=== PATIENT | male | born 1980 | race Caucasian/White ===

== ENCOUNTER 2018-11-15 10:49 | Outpatient (REF) | payer OTHER, SELFPAY ==
[2018-11-15 13:24] LABS: ALT 32 U/L (12-78); AST 29 U/L (15-37); Albumin 4.2 g/dL (3.4-5.0); Alkaline Phosphatase 95 U/L (46-116); Anion Gap 9.2 mmol/L (3-11); BUN 12 mg/dL (7-18); Bilirubin, Total 0.7 mg/dL (0.2-1.0); CO2 26.8 mmol/L (21.0-32.0); CREATININE 1.07 mg/dL (0.70-1.30); Calcium 9.9 mg/dL (8.5-10.1); Chloride 101 mmol/L (98-107); Glucose 104 mg/dL (70-100); Potassium 4.5 mmol/L (3.5-5.1); Sodium 137 mmol/L (136-145); Total Protein 7.5 g/dL (6.4-8.2)
== END 2018-11-15 11:09 ==
LOC: NCHCN 10:49
PROVIDERS: PCP Family Medicine; Visit Provider Family Medicine
DX: F64.1 Dual role transvestism (principal); E83.52 Hypercalcemia
CPT/HCPCS: 80053

== ENCOUNTER 2019-02-14 10:45 | Outpatient (REF) | payer OTHER, SELFPAY ==
[2019-02-15 13:21] LABS: Chlamydia Result Negative; GC Result Negative; Specimen Description URINE
[2019-02-16 09:56] LABS: HIV-1/2 Ag & Ab Screen Negative (NEGAT)
[2019-02-16 10:28] LABS: Hepatitis B Surface Ag Negative (NEGAT)
[2019-02-16 11:40] LABS: Syphilis Serology (RPR) Negative (Negative)
== END 2019-02-14 11:05 ==
LOC: NCHCN 10:45
PROVIDERS: PCP Family Medicine; Visit Provider Family Medicine
DX: Z00.00 Encounter for general adult medical examination without abnormal findings (principal); Z11.59 Encounter for screening for other viral diseases; Z11.4 Encounter for screening for human immunodeficiency virus [HIV]; Z11.3 Encounter for screening for infections with a predominantly sexual mode of transmission
CPT/HCPCS: 87340; 87389; 87491; 87591; 86592

== ENCOUNTER 2019-08-01 11:16 | Outpatient (REF) | payer BC, SELFPAY ==
[2019-08-10 17:20] LABS: Methylphenidate 125 ng/mL; Ritalinic Acid 1487 ng/mL
== END 2019-08-01 11:36 ==
LOC: NCHCN 11:16
PROVIDERS: PCP Family Medicine; Visit Provider Family Medicine
DX: F90.0 Attention-deficit hyperactivity disorder, predominantly inattentive type (principal); Z51.81 Encounter for therapeutic drug level monitoring
CPT/HCPCS: 80360

== ENCOUNTER 2019-10-31 13:01 | Outpatient (REF) | payer BC, SELFPAY ==
[2019-10-31 14:17] LABS: ALT 15 U/L (16-63); AST 18 U/L (15-37); Albumin 4.4 g/dL (3.4-5.0); Alkaline Phosphatase 91 U/L (46-116); Anion Gap 11.2 mmol/L (3-11); BUN 13 mg/dL (7-18); Bilirubin, Total 0.4 mg/dL (0.2-1.0); CO2 25.8 mmol/L (21.0-32.0); CREATININE 0.96 mg/dL (0.70-1.30); Chloride 104 mmol/L (98-107); Glucose 102 mg/dL (74-106); Potassium 4.8 mmol/L (3.5-5.1); Sodium 141 mmol/L (136-145); Total Protein 7.7 g/dL (6.4-8.2)
[2019-11-01 15:13] LABS: Hemoglobin A1C 5.6 % (3.8-5.6)
== END 2019-10-31 13:21 ==
LOC: NCHCN 13:01
PROVIDERS: PCP Family Medicine; Visit Provider Family Medicine
DX: R73.09 Other abnormal glucose (principal); F64.1 Dual role transvestism; Z51.81 Encounter for therapeutic drug level monitoring
CPT/HCPCS: 80053; 83036

== ENCOUNTER 2020-10-02 09:37 | Outpatient (REF) | payer OTHER, SELFPAY ==
[2020-10-02 18:32] LABS: Hemoglobin A1C 5.2 % (<5.7)
[2020-10-02 18:41] LABS: Anion Gap 9.8 mmol/L (3-11); BUN 11 mg/dL (7-18); CO2 25.2 mmol/L (21.0-32.0); CREATININE 0.94 mg/dL (0.70-1.30); Calcium 9.5 mg/dL (8.5-10.1); Calculated LDL 70 mg/dL (<100); Chloride 105 mmol/L (98-107); Cholesterol 146 mg/dL (<200); Glucose 102 mg/dL (74-106); HDL Cholesterol 40 mg/dL (40-60); Potassium 4.5 mmol/L (3.5-5.1); Sodium 140 mmol/L (136-145); Triglyceride 181 mg/dL (<150)
== END 2020-10-02 09:57 ==
LOC: NCHCN 09:37
PROVIDERS: PCP Family Medicine; Visit Provider Family Medicine
DX: R73.03 Prediabetes (principal); F64.1 Dual role transvestism; Z00.00 Encounter for general adult medical examination without abnormal findings
CPT/HCPCS: 80048; 80061; 83036

== ENCOUNTER 2021-09-09 13:30 | Outpatient (REF) | payer OTHER, SELFPAY ==
[2021-09-09 19:54] LABS: Anion Gap 10.9 mmol/L (3-11); BUN 12 mg/dL (7-18); CO2 26.1 mmol/L (21.0-32.0); Calcium 9.2 mg/dL (8.5-10.1); Calculated LDL 60 mg/dL (<100); Chloride 105 mmol/L (98-107); Cholesterol 136 mg/dL (<200); Glucose 106 mg/dL (74-106); HDL Cholesterol 38 mg/dL (40-60); Potassium 4.4 mmol/L (3.5-5.1); Sodium 142 mmol/L (136-145); Triglyceride 192 mg/dL (<150)
[2021-09-09 21:10] LABS: Hemoglobin A1C 5.3 % (<5.7)
== END 2021-09-09 13:31 | disposition home or self-care (01) ==
LOC: NCHCN 13:30
PROVIDERS: PCP Family Medicine; Visit Provider Family Medicine
DX: Z00.00 Encounter for general adult medical examination without abnormal findings (principal); R73.03 Prediabetes; Z13.220 Encounter for screening for lipoid disorders
CPT/HCPCS: 80048; 80061; 83036

== ENCOUNTER 2021-12-02 12:17 | Outpatient (REF) | payer OTHER, SELFPAY ==
--- NOTE | 2021-12-02 09:35 | SKI_PTH ---
PATIENT: David Bolden LOC: [facility] U#:[id number] AGE/SX: 41/M ROOM: RE12/02/[address]: Bam Long : 1980 BED: DIS: 12/02/2021 SPEC #: [id number] RECD: 12/02/21 15:45 STATUS: SERA MURILLO #: [id number] DANI: 12/02/21 09:[address]: Bam Long DEPT: Surgical Specimen RECD BY: Essie Babb Tissues: 1 - SKIN BIOPSY(SHAVE/PUNCH) Procedures: SKIN LEVEL 4 Comments: [id number]
== END 2021-12-02 12:18 | disposition home or self-care (01) ==
LOC: NCHCN 12:17
PROVIDERS: PCP Family Medicine; Visit Provider Family Medicine
DX: D22.5 Melanocytic nevi of trunk (principal)
CPT/HCPCS: 88305

== ENCOUNTER 2022-09-01 12:28 | Outpatient (REF) | payer OTHER, SELFPAY ==
[2022-09-01 18:15] LABS: Anion Gap 11.5 mmol/L (3-11); BUN 10 mg/dL (7-18); CO2 23.5 mmol/L (21.0-32.0); Calcium 9.4 mg/dL (8.5-10.1); Chloride 106 mmol/L (98-107); Estimated GFR 97.58 (mL/min/1.73m2); Glucose 105 mg/dL (74-106); Potassium 4.3 mmol/L (3.5-5.1); Sodium 141 mmol/L (136-145)
== END 2022-09-01 12:29 | disposition home or self-care (01) ==
LOC: NCHCN 12:28
PROVIDERS: PCP Family Medicine; Visit Provider Family Medicine
DX: Z00.00 Encounter for general adult medical examination without abnormal findings (principal); R73.03 Prediabetes
CPT/HCPCS: 80048

== ENCOUNTER 2022-12-03 10:57 | Outpatient (REF) | payer OTHER, SELFPAY ==
[2022-12-04 09:24] LABS: Hepatitis B Surface Ag Negative (Negative)
[2022-12-04 10:24] LABS: HIV-1/2 Ag & Ab Screen Negative (Negative)
[2022-12-04 10:33] LABS: Syphilis Serology (RPR) Negative (Negative)
[2022-12-04 13:36] LABS: Chlamydia Result Negative (Negative); GC Result Negative (Negative)
== END 2022-12-03 10:58 | disposition home or self-care (01) ==
LOC: NCHCN 10:57
PROVIDERS: PCP Family Medicine; Visit Provider Family Medicine
DX: Z00.00 Encounter for general adult medical examination without abnormal findings (principal); Z11.4 Encounter for screening for human immunodeficiency virus [HIV]; Z11.3 Encounter for screening for infections with a predominantly sexual mode of transmission
CPT/HCPCS: 87340; 87389; 87491; 87591; 86592

== ENCOUNTER 2023-10-08 12:55 | Outpatient (REF) | payer OTHER, SELFPAY ==
[2023-10-08 17:01] LABS: Anion Gap 10.5 mmol/L (3-11); BUN 11 mg/dL (7-18); CO2 24.5 mmol/L (21.0-32.0); CREATININE 0.9 mg/dL (0.70-1.30); Calcium 9.8 mg/dL (8.5-10.1); Chloride 103 mmol/L (98-107); Estimated GFR 110.04 (mL/min/1.73m2); Glucose 121 mg/dL (74-106); Potassium 4.3 mmol/L (3.5-5.1); Sodium 138 mmol/L (136-145)
[2023-10-08 17:19] LABS: Hemoglobin A1C 5.4 % (<5.7)
== END 2023-10-08 12:56 | disposition home or self-care (01) ==
LOC: NCHCN 12:55
PROVIDERS: PCP Family Medicine; Visit Provider Family Medicine
DX: Z87.890 Personal history of sex reassignment (principal); R73.03 Prediabetes
CPT/HCPCS: 80048; 83036

== ENCOUNTER 2024-05-12 16:32 | Outpatient (REF) | payer OTHER, SELFPAY ==
[2024-05-17 13:20] LABS: Methylphenidate 353 ng/mL (Cutoff: 10); Ritalinic Acid 7276 ng/mL (Cutoff: 50)
== END 2024-05-12 16:33 | disposition home or self-care (01) ==
LOC: NCHCN 16:32
PROVIDERS: PCP Family Medicine; Visit Provider Student in an Organized Health Care Education/Training Program
DX: F90.8 Attention-deficit hyperactivity disorder, other type (principal); Z79.899 Other long term (current) drug therapy; Z51.81 Encounter for therapeutic drug level monitoring
CPT/HCPCS: 80360

== ENCOUNTER 2024-08-04 17:33 | Outpatient (REF) | payer OTHER, SELFPAY ==
[2024-08-04 17:05] LABS: Anion Gap 13.7 mmol/L (3-11); BUN 10 mg/dL (7-18); CO2 25.3 mmol/L (21.0-32.0); CREATININE 1.1 mg/dL (0.70-1.30); Calcium 9.6 mg/dL (8.5-10.1); Chloride 106 mmol/L (98-107); Estimated GFR 85.95 (mL/min/1.73m2); Glucose 103 mg/dL (74-106); Potassium 4.5 mmol/L (3.5-5.1); Sodium 145 mmol/L (136-145)
--- OUTSIDE RECORDS SUMMARY | 2024-08-04 17:53 | XMS_ITS | Encounter Summary ---
Author Organization [facility] Address [address] [place] [address] Care Team Providers Care Concrete Paver Name Role Phone Bam Long MD Primary Care Provider [phone] Reason for Visit * Reason Onset Date Comments Follow-up 09/09/2019 Encounter Details Date Type Department Care Team (Late st Contact Info) Description 09/09/2019 Telephone [facility] Endocrinology - [address] [address] Rohini Nieto MD PhD [address] [facility] [address] [place] [address] Follow-up Social History Tobacco Use Types Packs/Day Years Used Date Smoking Tobacco: Never Smokeless Tobacco: Never Sex and Gender Information Value Date Recorded Sex Assigned at Not on file Gender Identity Not on file Sexual Orientation Not on file documented as of this encounter Functional Status Functional Status Response Date of Assess ment Because of a physical, menta l, or emotional condition, does this person have difficulty doing errands alone such as visiting a doctor's office or shopping? No 08/15/2019 Cognitive Status Response Date of Assessm ent Because of a physical, menta l, or emotional condition, does this person have serious difficulty concentrating, remembering, or making decisions? No 08/15/2019 documented as of this encounter Miscellaneous Notes * Telephone Encounter - Diane Fernandez RN - 09/09/2019 1432 EST Returning patient's call 09/09/19 14:32 This engineering writer relayed the message that was included in Dr. Nieto's 08/22/19 letter. Patient verbalized understanding. No barriers to learning noted. Patient denies having any further questions. DIANE SHERIDAN RN 09/09/2019 14:35 * Telephone Encounter - Kandy Olson - 09/09/2019 1028 EST Patient states he was to have follow up from Provider on alternate dosing treatments on what was discussed during 08/15/19 office visit. No other info given. He also didn't get the letter of the results from hormone levels that was mailed 08/22/19. I have confirmed his mailing address and sent thatinfo again for him. Please call. documented in this encounter Plan of Treatment Not on file documented as of this encounter Visit Diagnoses Not on filedocumented in this encounter Care Teams Concrete Paver Relationship Specialty Start Date End Date Bam Long MD [facility] [place] [address] PCP - General 08/05/19 documented as of this encounter
--- OUTSIDE RECORDS SUMMARY | 2024-08-04 17:53 | XMS_ITS | Encounter Summary ---
Author Organization [facility] Address [address] [place] [address] Care Team Providers Care Form Setter [employer] Forms Name Role Phone Bam Long MD Primary Care Provider [phone] Encounter Details Date Type Department Care Team (Late st Contact Info) Description 12/03/2022 Lab Requisition [facility] Pathology & Laboratory Medicine - [address] [address] Outr Resulting Lab, Provider Social History Tobacco Use Types Packs/Day Years Used Date Smoking Tobacco: Never Smokeless Tobacco: Never Interpersonal Safety Answer Date Record ed Physically Hurt Never 05/27/2020 Verbally Threaten Not on file 05/27/2020 Sex and Gender Information Value Date Recorded [...] No 08/15/2019 documented as of this encounter Plan of Treatment Not on file documented as of this encounter Procedures Procedure Name Priority Date/Time Associated Diagnosis Comments SYPHILIS SEROLOGY Routine 12/03/2022 9:50 EST documented in this encounter Results * SYPHILIS SEROLOGY (12/03/2022 9:50 EST) Syphilis Serology Negative Negative 12/04/2022 10:28 EST [facility] Blood VENOUS BLOOD / Unknown 12/03/2022 9:50 EST 12/03/2022 21:46 EST Provider Outr Resulting Lab IMMUNOLOGY A ND SEROLOGY ORDERABLES Performing Organization Address City/State/[facility] Co de Phone Number [facility] [address] [place] [address] documented in this encounter Visit Diagnoses Not on filedocumented in this encounter Care Teams Form Setter Steel Forms Relationship Specialty Start Date End Date Bam Long MD [facility] [place] [address] [place] [address] PCP - General 08/05/19 documented as of this encounter
--- OUTSIDE RECORDS SUMMARY | 2024-08-04 17:53 | XMS_ITS | Data Portability ---
Author Organization [facility] Address [address] [place] [address] Assessment No assessment recorded. Plan of Treatment Reminders Order Date Submit Date Provider Last Modified By Organization Details Last Modified Time Details Appointments Follow Up 30 2023 09:30A Hitesh Franco Not available Not available Not available Annual Wellness Exam 40 2024 09:30A Hitesh Franco Not available Not available Not available Lab HbA1c (hemoglob in A1c), blood 2022 023 [facility] (Registration ), [address] [place] [address] [place], [address], 10/15/2023 10:23:43 BMP, serum or plasma 2022 023 [facility] (Registration ), [address] [place] [address] [place], [address], 10/15/2023 10:23:43 drug screen, urine 2023 024 [email or web address] [facility], [address], [place], [address], 05/12/2024 17:16:13 methylphe nidate, urine, confirmat ory method - 1 Urine 2023 [email or web address] [facility] (Registration ), [address] [place] [address] [place], [address], 05/19/2024 08:15:42 BMP, serum or plasma 2023 [email or web address] [facility] (Registration ), [address] [place] [address] , [place], [address], 08/04/2024 15:12:15 magnesium , serum or plasma 2023 [email or web address] [facility] (Registration ), [address] [place] [address] , [place], [address], 08/04/2024 15:12:15 drug screen, urine 2023 024 [email or web address] [facility], [address] , [place], [address], 08/04/2024 15:12:15 methylphe nidate, urine, confirmat ory method 2023 [email or web address] [facility] (Registration ), [address] [place] [address] , [place], [address], 08/04/2024 15:12:15 Referral None recorded. Procedures None recorded. Surgeries None recorded. Imaging None recorded. Medication Orders methylphe nidate CD 30 mg biphasic 30-70 capsule,e xtended release 2023 024 [email or web address] [facility], [address] [place], [address], 02/10/2024 10:47:14 methylphe nidate CD 30 mg biphasic 30-70 capsule,e xtended release 2023 024 [email or web address] [facility], [address] [place] [address], [id number], 03/14/2024 07:48:39 methylphe nidate CD 30 mg biphasic 30-70 capsule,e xtended release 2023 024 [email or web address] [facility], [address] [place], [address], 01/14/2024 15:07:19 methylphe nidate CD 30 mg biphasic 30-70 capsule,e xtended release 2023 024 WILIAM [facility], [address] [place] [address], [id number], 05/12/2024 12:45:52 methylphe nidate CD 30 mg biphasic 30-70 capsule,e xtended release 2023 024 WILIAM [facility], [address] [place] [address], [id number], 05/12/2024 12:45:53 methylphe nidate CD 30 mg biphasic 30-70 capsule,e xtended release 2023 024 WILIAM [facility], [address] [place] [address], [address], 05/12/2024 12:45:50 methylphe nidate CD 30 mg biphasic 30-70 capsule,e xtended release 2023 024 WILIAM [facility], [address] [place] [address], [address], 08/04/2024 15:17:48 methylphe nidate CD 30 mg biphasic 30-70 capsule,e xtended release 2023 024 WILIAM [facility], [address] [place] [address], [id number], 08/04/2024 15:17:45 methylphe nidate CD 30 mg biphasic 30-70 capsule,e xtended release 2023 024 [email or web address] [facility], [address] [place] [address], [id number], 08/04/2024 15:17:45 Patient TargetsNo targets recorded. Patient Instructions Encounter Date Encounter Id Patient Instructions Last Modified By Organization Details Last Modified Time 05/12/2024 [id number] I recommend core strenghtening which will help to keep your posture more upright naturally, but also try to vary position. - Add some planks, maybe some crunches/oscillati ng crunch, abduction of leg and adduction of hips. Don't over do it and do reps where you are shaking, keep ROM comfortable, and 2-3 times/week or every 3rd day. [email or web address] Not available 05/12/2024 11:44:56 08/04/2024 [id number] Please give me a call 3-days before you need refill and I will send the next 3-scripts. - Be careful of weekends. Not available 08/04/2024 10:05:31 Reason for Referral None Reported. Results Created Date Observation Date Name Description Value Unit Range Abnormal Flag Note LastModifiedBy Organization Detail LastModifiedTime 10/08/2010/08/2023 BASIC METAB OLIC PANEL calcium 9.8 mg/dL 8.5-10 .1 normal Not Available [address] [place], [address] 10/08/2023 17:37:14 10/08/2010/08/2023 BASIC METAB OLIC PANEL glucose 121 mg/dL 74-106 high Not Available Faye garcia [address] [place], [address] 10/08/2023 17:37:14 10/08/2010/08/2023 BASIC METAB OLIC PANEL BUN 11 mg/dL 7-18 normal Not Available Faye garcia [address] [place], [address] 10/08/2023 17:37:14 10/08/20 23 10/08/2023 BASIC METAB OLIC PANEL creatinine 0.9 mg/dL 0.70-1 .30 normal Not Available [address] [place], [address] 10/08/2023 17:37:14 10/08/2010/08/2023 BASIC METAB OLIC PANEL estimated GFR 110.04 mL/min /1.73m 2 The eGFR is calcu lated from a serum creat inine using the CKD-E PI 2020 equat ion. Other varia bles requi red for the equat ion are gende r and age; this equat ion does not inclu de a race coeff icien t. This equat ion has simil ar overa ll perfo rmanc e to previ ous equat ions excep t value s may diffe r, in parti cular , in patie nts with highe r value s of eGFR and young er-ag ed adult s. Not Available [address] [place], [address] 10/08/2023 17:37:14 10/08/20 23 10/08/2023 BASIC METAB OLIC PANEL sodium 138 mmol/ L 136-14 5 normal Not Available [address] [place], [address] 10/08/2023 17:37:14 10/08/20 23 10/08/2023 BASIC METAB OLIC PANEL potassium 4.3 mmol/ L 3.5-5. 1 normal Not Available [address] [place], [address] 10/08/2023 17:37:14 10/08/20 23 10/08/2023 BASIC METAB OLIC PANEL chloride 103 mmol/ L 98-107 normal Not Available [address] [place], [address] 10/08/2023 17:37:14 10/08/20 23 10/08/2023 BASIC METAB OLIC PANEL CO2 24.5 mmol/ L 21.0-3 2.0 normal Not Available [address] [place], [address] 10/08/2023 17:37:14 10/08/20 23 10/08/2023 BASIC METAB OLIC PANEL anion gap 10.5 mmol/ L 3-11 normal Not Available [address] [place], [address] 10/08/2023 17:37:14 10/08/2010/08/2023 HEMOG LOBIN A1C hemoglobin A1C 5.4 % <5.7 Refer ence Range s <5.7 Jeannie l 5.7-6 .4% Predi abete s 6.5% or great er Diagn ostic for diabe iveth (if confi rmed) Refer ences : 1. Ameri can Diabe iveth Assoc iatio n. Clas sific ation and Diagn osis of Diabe iveth. Diabe iveth Care 2019 Oct;4 2(Sup pleme nt 1):S1 3-s28 . Not Available [address] [place], [address] 10/08/2023 17:38:27 05/12/20 24 05/17/2024 METHY LPHEN IDATE METAB OLITE ,U methylphenid ate 353 NG/mL cutoff : 10 Not Available [address] [place], [address] 05/18/2024 12:56:36 05/12/20 24 05/17/2024 METHY LPHEN IDATE METAB OLITE ,U ritalinic acid 7276 NG/mL cutoff : 50 Not Available [address] [place], [address] 05/18/2024 12:56:36 05/12/20 24 05/12/2024 drug scree n, urine Amphetamines : negati ve Not Available [facility] [address], [place], [address], 05/12/2024 11:39:34 05/12/20 24 05/12/2024 drug scree n, urine Barbiturates : negati ve Not Available [facility] [address], [place], [address], 05/12/2024 11:39:34 05/12/20 24 05/12/2024 drug scree n, urine BUP: negati ve Not Available [facility] [address], [place], [address], 05/12/2024 11:39:34 05/12/20 24 05/12/2024 drug scree n, urine Benzodiazepi javier: negati ve Not Available [facility] [address], [place], [address], 05/12/2024 11:39:34 05/12/20 24 05/12/2024 drug scree n, urine Cocaine: negati ve Not Available [facility] [address], [place], [address], 05/12/2024 11:39:34 05/12/20 24 05/12/2024 drug scree n, urine EDDP (Methadone Metabolite) negati ve Not Available [facility] [address], [place], [address], 05/12/2024 11:39:34 05/12/20 24 05/12/2024 drug scree n, urine (MET) Methamphetam ine: negati ve Not Available [facility] [address], [place], [address], 05/12/2024 11:39:34 05/12/20 24 05/12/2024 drug scree n, urine MDMA: negati ve Not Available [facility] [address], [place], [address], 05/12/2024 11:39:34 05/12/20 24 05/12/2024 drug scree n, urine MTD (Methadone): negati ve Not Available [facility] [address], [place], [address], 05/12/2024 11:39:34 05/12/20 24 05/12/2024 drug scree n, urine [id number] (Opiate): negati ve Not Available [facility] [address], [place], [address], 05/12/2024 11:39:34 05/12/20 24 05/12/2024 drug scree n, urine OXY (Oxycodone): negati ve Not Available [facility] [address], [place], [address], 05/12/2024 11:39:34 05/12/20 24 05/12/2024 drug scree n, urine TCA: negati ve Not Available [facility] [address], [place], [address], 05/12/2024 11:39:34 05/12/20 24 05/12/2024 drug scree n, urine THC: negati ve Not Available [facility] [address], [place], [address], 05/12/2024 11:39:34 05/12/20 24 05/12/2024 drug scree n, urine Temperature: 92 Not Available [facility] [address], [place], [address], 05/12/2024 11:39:34 08/04/20 24 08/04/2024 drug scree n, urine Amphetamines : negati ve Not Available [facility] [address], [place], [address], 08/04/2024 07:13:27 08/04/20 24 08/04/2024 drug scree n, urine Barbiturates : negati ve Not Available [facility] [address], [place], [address], 08/04/2024 07:13:27 08/04/20 24 08/04/2024 drug scree n, urine BUP: negati ve Not Available [facility] [address], [place], [address], 08/04/2024 07:13:27 08/04/20 24 08/04/2024 drug scree n, urine Benzodiazepi javier: negati ve Not Available [facility] [address], [place], [address], 08/04/2024 07:13:27 08/04/2008/04/2024 drug scree n, urine Cocaine: negati ve Not Available [facility] [address], [place], [address], 08/04/2024 07:13:27 08/04/2008/04/2024 drug scree n, urine EDDP (Methadone Metabolite) negati ve Not Available [facility] [address], [place], [address], 08/04/2024 07:13:27 08/04/2008/04/2024 drug scree n, urine (MET) Methamphetam ine: negati ve Not Available [facility] [address], [place], [address], 08/04/2024 07:13:27 08/04/2008/04/2024 drug scree n, urine MDMA: negati ve Not Available [facility] [address], [place], [address], 08/04/2024 07:13:27 08/04/2008/04/2024 drug scree n, urine MTD (Methadone): negati ve Not Available [facility] [address], [place], [address], 08/04/2024 07:13:27 08/04/2008/04/2024 drug scree n, urine [id number] (Opiate): negati ve Not Available [facility] [address], [place], [address], 08/04/2024 07:13:27 08/04/2018 0808/04/2024 drug scree n, urine OXY (Oxycodone): negati ve Not Available [facility] [address], [place], [address], 08/04/2024 07:13:27 08/04/20 24 08/04/2024 drug scree n, urine TCA: negati ve Not Available [facility] [address], [place], [address], 08/04/2024 07:13:27 08/04/2008/04/2024 drug scree n, urine THC: negati ve Not Available [facility] [address], [place], [address], 08/04/2024 07:13:27 Result Notes None recorded. Problems Name Problem SNOMED Code Status Onset Date Resolution Date Notes Provider Name and Address Organization Details Recorded Time Herpesvi tamia infectio n 61479555 Active 2015 Problem Code: A60.00; Problem Code Type: ICD-10; Not Available [facility] 3 04:43:55 Adult health examinat ion Active 201512/02/19 22 - Comments only - Annetta Varela MD - Benign exam overall BMI is trending up, discusse d. Look for exercise opportun ities in winter Reviewed sexual risk, she doesn't think at risk so defers STD screen other labs done 08/2021 Discusse d timing of breast cancer and prostate screens in future. See below Problem Code: Z00.00; Problem Code Type: ICD-10; Not Available [facility] 3 04:43:55 Migraine without aura, not refracto ry 769260185 Active 2015 Problem Code: G43.009; Problem Code Type: ICD-10; Not Available [facility] 3 04:43:55 Attentio n deficit hyperact ivity disorder , predomin antly inattent steven type 13040986 Active 201606/11/20 23 - Comments only - Annetta Varela MD - Stable on methylfe nidate, refill due at the end of the month, continue 3 mo f/u Problem Code: F90.0; Problem Code Type: ICD-10; Not Available [facility] 3 04:43:56 Tinea cruris 421768926 Active 201608/18/20 17 - Comments only - Annetta Varela MD - Most c/w fungal infectio n tinea cruris. try antifung al cream. Discusse d moister, using cotton underwea r might help. Problem Code: B35.6; Problem Code Type: ICD-10; Not Available [facility] 3 04:43:56 Body mass index 25-29 - overweig ht 893041975 Active 2018 Problem Code: Z68.28; Problem Code Type: ICD-10; Not Available [facility] 3 04:43:56 Therapeu tic drug monitori ng assay 28737153 Active 2019 Problem Code: Z51.81; Problem Code Type: ICD-10; Not Available [facility] 3 04:43:56 Prediabe iveth 530384093 Active 201909/01/20 22 - Comments only - Annetta Varela MD - Normaliz ed last year, repeat fasting glucose now as part of BMP Problem Code: R73.03; Problem Code Type: ICD-10; Not Available 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 3 04:43:56 Condylom a acuminat um of the anogenit al region 833709609 Active 202212/03/19 23 - Comments only - Annetta Varela MD - These are c/w genital warts, discusse d options try imiquomo d. Problem Code: A63.0; Problem Code Type: ICD-10; Not Available [facility] 3 04:43:56 Blood glucose outside referenc e range 765206651 Completed 201907/22/2023 Problem Code: R73.09; Problem Code Type: ICD-10; Not Available [facility] 3 04:43:57 History of vasectom y 118587216 Completed 201708/23/2018 Problem Code: Z98.52; Problem Code Type: ICD-10; Not Available [facility] 3 04:43:58 Contrace ption care manageme nt Completed 201705/17/2018 Problem Code: Z30.9; Problem Code Type: ICD-10; Not Available [facility] 3 04:43:58 Hypercal cemia 29574505 Completed 201802/14/2019 Problem Code: E83.52; Problem Code Type: ICD-10; Not Available [facility] 3 04:44:00 Attentio n deficit hyperact ivity disorder 334742553 Active 2023 ZORAIDA MASTERSON [address], [facility] [address] , [facility] 4 11:52:52 Pain of left shoulder region Active [address], [place], [address] , [facility] 4 11:14:28 Problem Notes None recorded. Medical Equipment None Reported. Allergies Allergen ID Allergen Name Allergen Category Reaction Reaction Severity Criticality Documentation Date Start Date Code Code System Note Provider Name and Address Organization Details Recorded Time 21182 house dust allergeni c extract environme nt,medica tion Not available Not available Not available 09/04/20232015 16127 9 RxNorm Not Available [facility] 3 16:22:05 Medications Name Sig Start Date Stop Date Status Note LastModified by Organization Details LastModified Time multivitami n tablet Take 1 tablet by mouth once daily 05/12 completed Not Available Not Available Not Available estradiol 0.05 mg/24 hr weekly transdermal patch Apply 1 patch to skin once a week 03/03 completed Not Available Not Available Not Available spironolact one 100 mg tablet Take 2 tablet by mouth once a day active Not Available Not Available No t Available Excedrin Migraine 250 mg-250 mg-65 mg tablet OTC prn migraine 2015 active Not Available Not Available Not Avai lable estradiol 1 mg tablet TAKE ONE TABLET UNDER THE TONGUE ONCE DAILY active Not Available Not Available No t Available imiquimod 5 % topical cream packet APPLY A SMALL AMOUNT DIRECTED TO AFFECTED AREA(S) THREE TIMES A WEEK 01/13 completed Not Available Not Available Not Available ketoconazol e 2 % topical cream Use to skin twice a day 12/02 completed Not Available Not Available Not Available methylpheni date ER 36 mg tablet,exte nded release 24 hr one po daily (Fill on or after January 17, 2019) 2016 active Not Available Not Available Not Avai lable spironolact one 50 mg tablet Take 1 tab by mouth daily 2016 active Not Available Not Available Not Avai lable methylpheni date CD 20 mg biphasic 30-70 capsule,ext ended release Take 1 tab by mouth daily 2016 active Not Available Not Available Not Avai lable methylpheni date CD 30 mg biphasic 30-70 capsule,ext ended release Take 1 capsule every day by oral route. 2023 active Not Available Not Available Not Avai lable Vitals Date Recorded Body height Body mass index (BMI) Body weight Body temperature Oxygen saturation Oxygen saturation in Arterial blood by Pulse oximetry Respiratory rate Heart rate Systolic blood pressure Diastolic blood pressure Provider Name and Address Organization Details Last Updated DateTime 3 181.61 cm 33.3 kg/m2 908233. 35 g 98.1 [degF] 99 % 99 % 16 /min 72 /min 104 mm[Hg] 70 mm[Hg] ALVIN GONZALEZ RN [facility] 3 10:43:20 Date Recorded Body height Body mass index (BMI) Body weight Body temperature Oxygen saturation Oxygen saturation in Arterial blood by Pulse oximetry Respiratory rate Systolic blood pressure Diastolic blood pressure Provider Name and Address Organization Details Last Updated DateTime 4 181.61 cm 33.4 kg/m2 831014. 95 g 98.2 [degF] 98 % 98 % 15 /min 114 mm[Hg] 78 mm[Hg] ALVIN GONZALEZ RN [facility] 4 14:29:36 Date Recorded Heart rate Provider Name an d Address Organization Details Last Updated DateTime 01/14/2024 102 /min ANNETTA VARELA [facility] 01/14/2024 15:00:22 Date Recorded Body height Body mass index (BMI) Body weight Body temperature Oxygen saturation Oxygen saturation in Arterial blood by Pulse oximetry Heart rate Systolic blood pressure Diastolic blood pressure Provider Name and Address Organization Details Last Updated DateTime 4 181.61 cm 34 kg/m2 059476. 32 g 97.5 [degF] 99 % 99 % 99 /min 112 mm[Hg] 68 mm[Hg] TRACI VALDOVINOS MA [facility] 4 11:09:20 Date Recorded Body height Body mass index (BMI) Body weight Body temperature Oxygen saturation Oxygen saturation in Arterial blood by Pulse oximetry Heart rate Respiratory rate Systolic blood pressure Diastolic blood pressure Provider Name and Address Organization Details Last Updated DateTime 4 181.61 cm 34.1 kg/m2 511295. 91 g 98.1 [degF] 97 % 97 % 91 /min 18 /min 124 mm[Hg] 72 mm[Hg] Miryam Barroso [facility] 4 09:37:41 Social History Question Answer Notes LastModified by Organizat ion Details LastModified Time Tobacco Smoking Status Never Smoker TRACI VALDOVINOS MA null, [facility] 05/12/2024 11:10:44 1) Date Of Last VPMS Check? 08/04/2024 Information not available 08/04/2024 2) VPMS Findings No Concerns VPMS - Filled 06/13/24 Methylphenidate Er 30mg Cap #28 Filled 07/07/24 Methylphenidate Er 30mg Cap #28 Information not available 08/04/2024 What Was The Date Of Your Most Recent Tobacco Screening? 05/12/2024 Information not available 05/12/2024 Do You Or Have You Ever Used Any Other Forms Of Tobacco Or Nicotine? No Information not available 05/12/2024 Sex: Male Functional Status None recorded. Mental Status None recorded. Family History Relationship Description Onset Age of this Age Resolved Age Notes LastModified by Organization Details LastModified Time Mother Family history of Depression Bipola r [email or web address] Not available 09/04/2023 03:58:21 Mother Family history of malignant neoplasm breast [email or web address] Not available 2022 03:58:21 Father Family history of malignant neoplasm prosta te [email or web address] Not available 09/04/2023 03:58:21 Medical History No medical history recorded. Immunizations Vaccine Type Date Status Provider Name and Address Organization Details Recorded Time HPV9 05/12/2024 completed ZORAIDA MASTERSON [address], [place], [address], [facility] 05/12/2024 12:08:55 Hep A-Hep B 12/03/2022 completed Not Available [facility] 09/04/2023 04:09:58 Tdap 07/16/2016 completed Not Available [facility] 04:09:58 Influenza, split virus, quadrivalent, PF 08/01/2019 completed Not Available [facility] 09/04/2023 04:09:59 Influenza, split virus, quadrivalent, PF 09/01/2022 completed Not Available [facility] 09/04/2023 04:09:59 Influenza, split virus, quadrivalent, PF 10/02/2020 completed Not Available [facility] 09/04/2023 04:09:59 Influenza, split virus, quadrivalent, preservative 07/22/2017 completed Not Available [facility] 09/04/2023 04:09:59 HPV9 03/03/2023 completed Not Available [facility] 04:09:59 COVID-19, mRNA, LNP-S, PF, 100 mcg/0.5mL dose or 50 mcg/0.25mL dose 02/23/2021 completed Not Available [facility] 09/04/20 04:10:00 COVID-19, mRNA, LNP-S, PF, 100 mcg/0.5mL dose or 50 mcg/0.25mL dose 03/23/2021 completed Not Available [facility] 09/04/20 04:10:00 SARS-COV-2 (COVID-19) vaccine, UNSPECIFIED 04/10/2022 completed Not Available [facility] 09/04/2023 04:10:01 SARS-COV-2 (COVID-19) vaccine, UNSPECIFIED 09/30/2021 completed Not Available [facility] 09/04/2023 04:10:01 COVID-19, mRNA, LNP-S, bivalent, PF, 30 mcg/0.3 mL dose 01/27/2023 completed Not Available [facility] 09/04/2023 04:10:01 influenza, unspecified formulation 08/09/2018 completed Not Available [facility] 09/04/2023 04:10:02 Influenza, split virus, trivalent, PF 08/04/2024 completed ALVIN GONZALEZ RN [facility], [facility] 08/04/2024 16:44:10 COVID-19, mRNA, LNP-S, PF, deborah-sucrose, 30 mcg/0.3 mL 08/04/[address], [place], [address], [facility] 08/04/2024 10:23:33 COVID-19, mRNA, LNP-S, PF, deborah-sucrose, 30 mcg/0.3 mL 10/08/2023 completed ANNETTA coughlin [facility] 10/08/2023 12:03:01 HPV9 10/08/2023 completed ANNETTA coughlin [facility] 10/08/2023 12:03:01 Influenza, split virus, quadrivalent, PF 10/08/2023 completed ANNETTA coughlin, [facility] 10/08/2023 12:03:01 Past Encounters Encounter ID Performer Location Encounter Start Date Encounter Closed Date Diagnosis/Indication Diagnosis SNOMED-CT Code Diagnosis ICD10 Code [id number] ANNETTA VARELA [facility] [address] [place] [address] 10/08/2023 10:27:50 10/08/2023 11:12:17 Attention deficit hyperactivity disorder, predominantly inattentive type [id number] F90.0 Gender carter ssignment patient [id number] Z87.890 Prediabetes [id number] R7 3.03 [id number] ANNETTA VARELA [facility] [address] [place] [address] 01/14/2024 14:14:09 01/14/2024 15:02:22 Attention deficit hyperactivity disorder, predominantly inattentive type [id number] F90.0 Gender carter ssignment patient [id number] Z87.890 Prediabetes 435019856 R7 3.03 [id number] ZORAIDA MASTERSON [facility] [address] [place] [address] 05/12/2024 10:57:02 05/12/2024 11:55:18 Active or passive immunization 598294247 Z23 Attention deficit hyperactivity disorder 387590522 F90.9 Pain of le ft shoulder region [id number] M25.482 [id number] ZORAIDA MASTERSON [facility] [address] [place] [address] 08/04/2024 09:26:56 08/04/2024 10:21:48 Attention deficit hyperactivity disorder [id number] F90.9 Active or passive immunization 347689861 Z23 Therapeuti c drug monitoring assay 83412278 Z51.81 Health Concerns Section Related Observation LastModified by Organization Detai ls LastModified Time None Recorded Concern Status LastModified by Organization Details LastModified Time None Recorded Advance Directives Directive None Recorded Payers Encounter Date Sequence Insurance Name Policy Number Policy [place] Covered Member ID [place] Member ID Guarantor Name 10/08/2023 1 [facility] [place] [facility] (PPO) [id number] David Bolden [id number] David Bolden 01/14/2024 1 [facility] [place] [facility] [facility] ([place] [id number] Davidhola Bolden [id number] David Bolden 05/12/2024 1 [facility] [place] [facility] [place] [facility] ([place] [id number] Davidhola Bolden [id number] David Bolden 08/04/2024 1 [facility] [place] [facility] (PP[place] [id number] David Bolden [id number] David Bolden Notes Date Note Type Note Provider Name and Address Organization Details Recorded Time 01/14/2024 text/html HPI Notes: Here for follow up They are feeling fine meds doing what it should do - 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 ADHD meds gets them through the typical work day Here for follow up They are feeling fine, happy with methylfenidate, helping with focus and staying on task during work day. ANNETTA coughlin, [facility] 01/14/2024 15:09:08 05/12/2024 text/html HPI Notes: Pt, 6 2- AMAB, gender fluid is how Rolando is identifying is here for f/u for ADHD and also has a left shoulder ache. Rolando is using the name Keara. Left Shoulder: Keara describes a feeling of achiness over medial shoulderblade towards spine with some tightness felt when rotating head to the right at limits of rotation. No acute incident known to be the cause. Has not trialed any pain medication. Denies any tics, inappropriate diaphoresis, or palpitations. ADHD: Pt. reports medication is helpful. 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 Social: Pt. reports she lives with her mother. She has her 12-year-old child (they/them) 1/2 the time and the other 1/2 the time with their mother. ZORAIDA MA[address], [place], [address], [facility]. 05/12/2024 12:48:36 08/04/2024 text/html HPI Notes: Pt 44-here for ADHD follow up. Reports meds working as long and as well as they should. No palpitations, diaphoresis, raynaud's, no new tics. Pt. w/out concerns. VPMS checked today. ZORAIDA MA[address], [place], [address], [facility]. 08/04/2024 15:18:46
--- OUTSIDE RECORDS SUMMARY | 2024-08-04 17:53 | XMS_ITS | Encounter Summary ---
Author Organization [facility] Address [address] [place] [address] Care Team Providers Care Staff Home Therapy Rn Name Role Phone Bam Long MD Primary Care Provider [phone] Encounter Details Date Type Department Care Team (Late st Contact Info) Description 12/03/2022 Lab Requisition [facility] Pathology & Laboratory Medicine - [address] [address] Outr Resulting Lab, Provider Social History Tobacco [...] Procedure Name Priority Date/Time Associated Diagnosis Comments CHLAMYDIA/N. GONORRHOEAE AMPLIFIED NUCLEIC ACID Routine 12/03/2022 9:50 EST documented in this encounter Results * CHLAMYDIA/N. GONORRHOEAE AMPLIFIED RNA (12/03/2022 9:50 EST) Neisseria gonorrhoeae Result Negative Negative 12/04/2022 13:[address] [facility] Chlamydia trachomatis Result Negative Negative 12/04/2022 13:[address] [facility] Urine URINE / Unknown 12/03/2022 9 :50 EST 12/03/2022 22:19 EST Provider Outr Resulting Lab MICROBIOLOGY - GENERAL ORDERABLES [facility] [address] [place] [address] documented in this encounter Visit Diagnoses Not on filedocumented in this encounter Care Teams Staff Home Therapy Rn Relationship Specialty Start Date End Date Bam Long MD [address] [place] [address] PCP - General 08/05/19 documented as of this encounter
--- OUTSIDE RECORDS SUMMARY | 2024-08-04 17:53 | XMS_ITS | Encounter Summary ---
Author Organization [facility] Address [address] [place] [address] Care Team Providers Care Grain Elevator Operator Name Role Phone Bam Long MD Primary Care Provider [phone] Encounter Details Date Type Department Care Team (Late st Contact Info) Description 12/03/2022 Lab Requisition [facility] Pathology & Laboratory Medicine - [address] [address] Outr Resulting Lab, Provider Social History Tobacco [...] Procedure Name Priority Date/Time Associated Diagnosis Comments HEPATITIS B SURFACE ANTIGEN Routine 12/03/2022 9:50 EST documented in this encounter Results * HEPATITIS B SURFACE ANTIGEN (12/03/2022 9:50 EST) Hep B Surface Ag Negative Negative 12/04/2022 9:20 EST [facility] Blood VENOUS BLOOD / Unknown 12/03/2022 9:50 EST 12/03/2022 21:45 EST Provider Outr Resulting Lab CHEMISTRY & BLOOD GAS ORDERABLES [facility] [address] [place] [address] documented in this encounter Visit Diagnoses Not on filedocumented in this encounter Care Teams Grain Elevator Operator Relationship Specialty Start Date End Date Bam Long MD [address] [place] [address] PCP - General 08/05/19 documented as of this encounter
--- OUTSIDE RECORDS SUMMARY | 2024-08-04 17:53 | XMS_ITS | Encounter Summary ---
Author Organization [facility] Address [address] [place] [address] Care Team Providers Care Flooring Installer Name Role Phone Bam Long MD Primary Care Provider Encounter Details Date Type Department Care Team (Late st Contact Info) Description 12/03/2021 Lab Requisition [facility] Pathology & Laboratory Medicine - [address] [address] Bam Long MD [address] [place] [address] [place], [place] [id number] Encounter for other general examination Social History Tobacco Use Types Packs/Day Years [...] Procedure Name Priority Date/Time Associated Diagnosis Comments SURGICAL PATHOLOGY Today 12/02/2021 9: 35 EST Encounter for other general examination documented in this encounter Results * SURGICAL PATHOLOGY (12/02/2021 9:35 EST) Note to Patient The following pathology results have been interpreted by your pathologist and may be available to you before your health provider has had the opportunity to review them. Please allow time for your provider to receive these results and explore management options, if applicable. 12/04/2021 10:47 [facility] Final Diagnosis A. 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 12/04/2021 10:47 [facility] Attestation By the signature below, the attending physician certifies that they have 1) personally conducted a gross and/or microscopic examination of the described specimen(s), and/or personally interpreted the results of laboratory testing of the described specimen(s), and 2) personally rendered or confirmed the above diagnosis. 12/04/2021 10:47 [facility] at 1047 Clinical History Mole, irregular edges, bigger than others 12/04/2021 10:47 [facility] Gross Description A. Received in formalin labelled with proper patient identification (initials W, N) and shave biopsy left back is a shave biopsy of pale ledesma-white wrinkled skin (1.0 x 0.8 x 0.1 cm). There is a central ledesma to brown mottled macule with irregular borders (0.8 x 0.5 cm). Received in the same container is a possibly dislodged portion of white wrinkled skin (0.5 x 0.4 x 0.2 cm). There is a ledesma to brown mottled focus on one edge of the cutaneous surface of the separately received portion of skin (0.3 x 0.3 cm). The margins are inked blue. The shave biopsy is trisected and submitted in A1, and the separately received portion of skin is bisected and submitted in A2. Nazario Pham 12/03/2021 9:33 12/04/2021 10:47 [facility] Performing Lab [facility] 10:47 EST [facility] Scanned Images 12/04/2021 10:47 EST [facility] Tissue TISSUE SPECIMEN FROM SKIN / Unknown 12/02/2021 9:35 EST 12/03/2021 8:21 EST Bam Long MD PATHOLOGY ORDERABLES Performing Organization Address City/State/[facility] Co de Phone Number [facility] [address] [place] [address] documented in this encounter Visit Diagnoses Diagnosis Encounter for other general examination documented in this encounter Care Teams Flooring Installer Relationship Specialty Start Date End Date Bam Long MD [facility] [place] [address] [place] [address] PCP - General 08/05/19 documented as of this encounter
--- OUTSIDE RECORDS SUMMARY | 2024-08-04 17:53 | XMS_ITS | Encounter Summary ---
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 Bam Long MD [address] [place] [address] [place] [address] [facility] Endocrinology [address] [place] [address] Referral ID Status Reason Start Date Expiration Date Visits Re quested Visits Authorized [id number] Closed 1 1 Encounter Details Date Type Department Care Team (Latest Contact Info) Description 08/15/2019 9:00 EDT Office Visit [facility] Endocrinology - [facility] [address] [place] [address] Rohini Nieto MD PhD [address] [place] [address] [address] [place] [id number] Hormone disorder (Primary Dx) Discharge Disposition: Auto Discharge Social History Tobacco Use Types Packs/Day Years Used Date Smoking Tobacco: Never Smokeless Tobacco: Never Sex and Gender Information Value Date Recorded Sex Assigned at Not on file Gender Identity Not on file Sexual Orientation Not on file documented as of this encounter Last Filed Vital Signs Vital Sign Reading Time Taken Comments Blood Pressure 117/75 08/15/2019 0909 EDT Pulse 98 08/15/2019 0909 EDT Temperature - - Respiratory Rate - - Oxygen Saturation - - Inhaled Oxygen Concentration - - Weight 96.6 kg (213 lb) 08/15/2019908 EDT Height 182.9 cm (6') 08/15/2019 09 EDT Body Mass Index 28.89 08/15/2019 09 EDT documented in this encounter Functional Status Functional Status Response [...] No 08/15/2019 documented as of this encounter Discharge Diagnoses Diagnosis E34.9 Endocrine disorder, unspecified-E34.9[ICD-10-CM] documented in this encounter Patient Instructions * Patient Instructions* Rohini Nieto MD - 08/15/2019 9:00 EDT Will check the testosterone, estradiol The spironolactone will interfere with the testosterone effect on tissues, it does not lower the level in the blood. Estrogen will lower the level in the blood, increased risk for blood clots, which can be minimized by either taking oral medication under the tongue or using a patch. I will look into micro-dosing of estrogen and see if that would satisfy your goal of gender identification. 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 Patient states that he is fine with any pronoun at this time. He started using Spironolactone about 2 years ago and is verysatisified with his breast development, and he is wondering about the addition of estrogen. While he would like to look more feminine, he is not ready to transition, and also prefers to have the ability to have erections. He is pretty certain that he would not have any type of surgery to transition, and is not concerned about banking of sperm, as he has had a vasectomy in the past. He is on Spironolactone 50 mg 2/d. He is otherwise healthy without diabetes, heart or lung disease, no liver disease. Never smoker. Never diagnosed with depression, but has ADD on Methylphenidate. HPI PAST HISTORY Past Medical History: Diagnosis Date ??? ADHD ??? Asthma Past Surgical History: Procedure Laterality Date ??? VASECTOMY 2018 No family history on file. Social History Tobacco Use ??? Smoking status: Never Smoker ??? Smokeless tobacco: Never Used Substance Use Topics ??? Alcohol use: Not on file ??? Drug use: Not on file MEDICATIONS Current Outpatient Medications Medication Sig Dispense Refill ??? methylphenidate HCl (METADATE CD) 30 mg ER capsule Take 30 mg by mouth daily. 0 ??? Multivitamins with Minerals tablet tablet Take 1 Tab by mouth daily. ??? spironolactone (ALDACTONE) 50 mg tablet Take 50 mg by mouth 2 times daily. No current facility-administered medications for this visit. ALLERGIES No Known Allergies REVIEW OF SYSTEMS ROS Denies blurred vision, no chest pain or SOB, no diarrhea or constip, no polyuria or nocturia, no paraesthesias. VITALS Vitals: 08/15/19 0909 BP: 117/75 Pulse: 98 Weight: 96.6 kg (213 lb) Height: 182.9 cm (72) PHYSICAL EXAM Constitutional: He is oriented to person, place, and time. He appears well- developed and well-nourished. HENT: Head: Normocephalic. Mouth/Throat: No oropharyngeal exudate. Eyes: Pupils are equal, round, and reactive to light. EOM are normal. Neck: Normal range of motion. Neck supple. No thyromegaly present. Cardiovascular: Normal rate, regular rhythm and normal heart sounds. Pulmonary/Chest: Effort normal and breath sounds normal. Breasts enlarged without lesions, Zaheer stage 3 Abdominal: Soft. Bowel sounds are normal. Musculoskeletal: Normal range of motion. He exhibits no edema. Neurological: He is alert and oriented to person, place, and time. Skin: Skin is warm and dry. Has hirsutism lower abd, mustache area Psychiatric: He has a normal mood and affect. His behavior is normal. Judgment and thought content normal. ASSESSMENT 1. Hormone disorder TESTOSTERONE ESTRADIOL, ADULTS This young adult has a gender identity that is fluid. He has been thinking about possible estrogen use, but is not ready to transition, nor is he interested in any gender-related surgery. We discussed that the Spironolactone would lead to some interference of the effect of testosterone on tissues, but would not lower the testosterone level in the blood. His dose of Spironolactone is not high at 100 mg/d. Use of estrogen would lower testosterone and raise estradiol, leading to more feminization. It would likely affect the libido and ability to get erections. PLAN 1. Given handout on risks and benefits of estrogen replacement. 2. Given handout on Expectations on taking Estrogen. 3. Will get level of Testosterone and estradiol today. 4. Will see if there is any literature on micro-dosing that could lead to more feminization withoutlosing erections. Rohini Nieto MD 08/15/2019 10:05 documented in this encounter Plan of Treatment Not on file documented as of this encounter Results * ESTRADIOL, ADULTS (08/15/2019 10:03 EDT) Estradiol 23 0 - 40 pg/ml 08/15/2019 17:20 EDT [facility] Blood specimen (specimen) BLOOD SPECIMEN / Unknown 08/15/2019 10:03 EDT 08/15/2019 16:19 EDT Rohini Nieto MD PhD CHEMISTRY & BLOOD GAS ORDERABLES [facility] [address] [place] [address] * TESTOSTERONE (08/15/2019 10:03 EDT) Testosterone 356 229 - 902 ng/dl 08/16/2019 11:54 EDT [facility] Comment: The results of this assay can be falsely elevated due to the consumption of Biotin. Blood specimen (specimen) BLOOD SPECIMEN / Unknown 08/15/2019 10:03 EDT 08/15/2019 16:19 EDT Rohini Nieto MD PhD CHEMISTRY & BLOOD GAS ORDERABLES [facility] [address] [place] [address] documented in this encounter Visit Diagnoses Diagnosis Hormone disorder- Primary Unspecified endocrine disorder documented in this encounter Discontinued Medications Medication Sig Discontinue Reason Start Date End Da te spironolactone (ALDACTONE) 100 mg tablet Take 200 mg by mouth daily. Error 07/19/2019 08/15/2019 documented as of this encounter Historical Medications * This list may reflect changes made after this encounter. Medication Sig Dispensed Refills Start Date End Date spironolactone (ALDACTONE) 50 mg tablet Take 50 mg by mouth 2 times daily. Multivitamins with Minerals tablet tablet Take 1 Tab by mouth daily. methylphenidate HCl (METADATE CD) 30 mg ER capsule Take 30 mg by mouth daily. 0 07/21/2019 spironolactone (ALDACTONE) 100 mg tablet Take 200 mg by mouth daily. 1 07/19/2019 08/15/2019 added in this encounter Care Teams Soil Technician Relationship Specialty Start Date End Date Bam Long MD [address] [facility] [address] PCP - General 08/05/19 documented as of this encounter
--- OUTSIDE RECORDS SUMMARY | 2024-08-04 17:53 | XMS_ITS | Continuity of Care Document ---
Author Organization [facility] Address [address] [place] [address] Assessment No assessment recorded. Plan of Treatment Reminders Order Date Submit Date Provider Last Modified By Organization Details Last Modified Time Details Appointments Follow Up 30 2023 09:30A M Adal Franco Not available Not available Not available Annual Wellness Exam 40 2024 09:30A M Adal Franco Not available Not available Not available Lab drug screen, urine 2023 024 [facility], [address], [place], [address], 05/12/2024 17:16:13 methylphe nidate, urine, confirmat ory method - 1 Urine 2023 024 [email or web address] [facility] (Registration ), [address] [place] [address] [place], [address], 05/19/2024 08:15:42 Referral None recorded. Procedures None recorded. Surgeries None recorded. Imaging None recorded. Medication Orders methylphe nidate CD 30 mg biphasic 30-70 capsule,e xtended release 2023 024 [facility], [address] [facility], [place], [address], 05/12/2024 12:45:52 methylphe nidate CD 30 mg biphasic 30-70 capsule,e xtended release 2023 024 [facility], [address] [place], [address], 05/12/2024 12:45:53 methylphe nidate CD 30 mg biphasic 30-70 capsule,e xtended release 2023 024 [facility], [address] [place], [address], 05/12/2024 12:45:50 Patient TargetsNo targets recorded. Patient Instructions Encounter Date Encounter Id Patient Instructions Last Modified By Organization Details Last Modified Time 05/12/2024 [id number] I recommend core strenghtening which will help to keep your posture more upright naturally, but also try to vary position. - Add some planks, maybe some crunches/oscillati ng crunch, abduction of leg and adduction of hips. Don't over do it and do reps where you are shaking, keep ROM comfortable, and 2-3 times/week or every 3rd day. [email or web address] Not available 05/12/2024 11:44:56 Reason for Referral None Reported. Results Created Date Observation Date Name Description Value Unit Range Abnormal Flag Note LastModifiedBy Organization Detail LastModifiedTime 05/12/2005/12/2024 drug scree n, urine Amphetamines : negati ve Not Available [facility] [address], [place], [address], 05/12/2024 11:39:34 05/12/20 24 05/12/2024 drug scree n, urine Barbiturates : negati ve Not Available [facility] [address], [place], [address], 05/12/2024 11:39:34 05/12/20 24 05/12/2024 drug scree n, urine BUP: negati ve Not Available [facility] [address], [place], [address], 05/12/2024 11:39:34 05/12/20 24 05/12/2024 drug scree n, urine Benzodiazepi javier: negati ve Not Available [facility] [address], [place], [address], 05/12/2024 11:39:34 05/12/20 24 05/12/2024 drug scree n, urine Cocaine: negati ve Not Available [facility] [address], [place], [address], 05/12/2024 11:39:34 05/12/20 24 05/12/2024 drug scree n, urine EDDP (Methadone Metabolite) negati ve Not Available [facility] [address], [place], [address], 05/12/2024 11:39:34 05/12/20 24 05/12/2024 drug scree n, urine (MET) Methamphetam ine: negati ve Not Available [facility] [address], [place], [address], 05/12/2024 11:39:34 05/12/20 24 05/12/2024 drug scree n, urine MDMA: negati ve Not Available [facility] [address], [place], [address], 05/12/2024 11:39:34 05/12/20 24 05/12/2024 drug scree n, urine MTD (Methadone): negati ve Not Available [facility] [address], [place], [address], 05/12/2024 11:39:34 05/12/20 24 05/12/2024 drug scree n, urine [id number] (Opiate): negati ve Not Available [facility] [address], [place], [address], 05/12/2024 11:39:34 05/12/20 24 05/12/2024 drug scree n, urine OXY (Oxycodone): negati ve Not Available [facility] [address], [place], [address], 05/12/2024 11:39:34 05/12/20 24 05/12/2024 drug scree n, urine TCA: negati ve Not Available [facility] [address], [place], [address], 05/12/2024 11:39:34 05/12/20 24 05/12/2024 drug scree n, urine THC: negati ve Not Available [facility] [address], [place], [address], 05/12/2024 11:39:34 05/12/20 24 05/12/2024 drug scree n, urine Temperature: 92 Not Available [facility] [address], [place], [address], 05/12/2024 11:39:34 Result Notes None recorded. Problems Name Problem SNOMED Code Status Onset Date Resolution Date Notes Provider Name and Address Organization Details Recorded Time Herpesvi tamia infectio n 72827036 Active 2015 Problem Code: A60.00; Problem Code Type: ICD-10; Not Available [facility] 3 04:43:55 Adult health examinat ion Active 201512/02/19 22 - Comments only - Annetta Long MD - Benign exam overall BMI is trending up, discusse d. Look for exercise opportun ities in winter Reviewed sexual risk, she doesn't think at risk so defers STD screen other labs done 08/2021 Discusse d timing of breast cancer and prostate screens in future. See below Problem Code: Z00.00; Problem Code Type: ICD-10; Not Available [facility] 04:[facility]:55 Migraine without aura, not refracto ry 639231723 Active 2015 Problem Code: G43.009; Problem Code Type: ICD-10; Not Available [facility] 3 04:43:55 Attentio n deficit hyperact ivity disorder , predomin antly inattent steven type 18028264 Active 201606/11/20 23 - Comments only - Annetta Long MD - Stable on methylfe nidate, refill due at the end of the month, continue 3 mo f/u Problem Code: F90.0; Problem Code Type: ICD-10; Not Available [facility] 04:43:56 Tinea cruris 566503649 Active 201608/18/20 17 - Comments only - Annetta Long MD - Most c/w fungal infectio n tinea cruris. try antifung al cream. Discusse d moister, using cotton underwea r might help. Problem Code: B35.6; Problem Code Type: ICD-10; Not Available [facility] 3 04:43:56 Body mass index 25-29 - overweig ht 908781862 Active 2018 Problem Code: Z68.28; Problem Code Type: ICD-10; Not Available [facility] 3 04:43:56 Therapeu tic drug monitori ng assay 92377563 Active 2019 Problem Code: Z51.81; Problem Code Type: ICD-10; Not Available [facility] 3 04:43:56 Prediabe iveth 019306527 Active 201909/01/20 22 - Comments only - Annetta Long MD - Normaliz ed last year, repeat fasting glucose now as part of BMP Problem Code: R73.03; Problem Code Type: ICD-10; Not Available [facility] 3 04:43:56 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 Problem Code: A63.0; Problem Code Type: ICD-10; Not Available [facility] 3 04:43:56 Blood glucose outside referenc e range 337297331 Completed 201907/22/2023 Problem Code: R73.09; Problem Code Type: ICD-10; Not Available [facility] 3 04:43:57 History of vasectom y 383932777 Completed 201708/23/2018 Problem Code: Z98.52; Problem Code Type: ICD-10; Not Available [facility] 3 04:43:58 Contrace ption care manageme nt Completed 201705/17/2018 Problem Code: Z30.9; Problem Code Type: ICD-10; Not Available [facility] 3 04:43:58 Hypercal cemia 59473932 Completed 201802/14/2019 Problem Code: E83.52; Problem Code Type: ICD-10; Not Available [facility] 3 04:44:00 Attentio n deficit hyperact ivity disorder 441082164 Active [address], [facility] [address] , [facility] 4 11:52:52 Pain of left shoulder region Active [address], [facility] [address] , [facility] 4 11:14:28 Problem Notes None recorded. Medical Equipment None Reported. Allergies Allergen ID Allergen Name Allergen Category Reaction Reaction Severity Criticality Documentation Date Start Date Code Code System Note Provider Name and Address Organization Details Recorded Time 95558 house dust allergeni c extract environme nt,medica tion Not available Not available Not available 09/04/20232015 50033 9 RxNorm Not Available [facility] 3 16:22:05 Medications Name Sig Start Date [...] Updated DateTime 4 181.61 cm 34 kg/m2 525450. 32 g 97.5 [degF] 99 % 99 % 99 /min 112 mm[Hg] 68 mm[Hg] TRACI VALDOVINOS MA [place] [facility]. 4 11:09:20 Social History Question Answer Notes LastModified by Organizat ion Details LastModified Time Tobacco Smoking Status Never Smoker TRACI VALDOVINOS MA null, [facility] 05/12/2024 11:10:44 1) Date Of Last VPMS [...] Mother Family history of Depression Bipola r Not available 09/04/2023 03:58:21 Mother Family history of malignant neoplasm breast [email or web address] Not available 2022 03:58:21 Father Family history of malignant neoplasm prosta te Not available 09/04/2023 03:58:21 Medical History No medical history recorded. Immunizations Vaccine Type Date Status Provider Name and Address Organization Details Recorded Time HPV9 05/12/[address], [place], [address], [facility] 05/12/2024 12:08:55 Hep A-Hep B 12/03/2022 completed Not Available [facility] 09/04/2023 04:09:58 Tdap 07/16/2016 completed Not Available [facility] 04:09:58 Influenza, split virus, quadrivalent, PF 08/01/2019 completed Not Available [facility] 09/04/2023 04:09:59 Influenza, split virus, quadrivalent, PF 09/01/2022 completed Not Available [facility] 09/04/2023 04:09:59 Influenza, split virus, quadrivalent, PF 10/02/2020 completed Not Available [facility] 09/04/2023 04:09:59 Influenza, split virus, quadrivalent, preservative 07/22/2017 completed Not Available [facility] 09/04/2023 04:09:59 HPV9 03/03/2023 completed Not Available [facility] 04:09:59 COVID-19, mRNA, LNP-S, PF, 100 mcg/0.5mL dose or 50 mcg/0.25mL dose 02/23/2021 completed Not Available [facility] 09/04/20 04:10:00 COVID-19, mRNA, LNP-S, PF, 100 mcg/0.5mL dose or 50 mcg/0.25mL dose 03/23/2021 completed Not Available [facility] 09/04/20 04:10:00 SARS-COV-2 (COVID-19) vaccine, UNSPECIFIED 04/10/2022 completed Not Available [facility] 09/04/2023 04:10:01 SARS-COV-2 (COVID-19) vaccine, UNSPECIFIED 09/30/2021 completed Not Available [facility] 09/04/2023 04:10:01 COVID-19, mRNA, LNP-S, bivalent, PF, 30 mcg/0.3 mL dose 01/27/2023 completed Not Available [facility] 09/04/2023 04:10:01 influenza, unspecified formulation 08/09/2018 completed Not Available [facility] 09/04/2023 04:10:02 Influenza, split virus, trivalent, PF 08/04/2024 completed ALVIN GONZALEZ RN null, [facility]. 08/04/2024 16:44:10 COVID-19, mRNA, LNP-S, PF, deborah-sucrose, 30 mcg/0.3 mL 08/04/[address], [place], [address], [facility]. 08/04/2024 10:23:33 COVID-19, mRNA, LNP-S, PF, deborah-sucrose, 30 mcg/0.3 mL 10/08/2023 completed ANNETTA LONG null, [facility] 10/08/2023 12:03:01 HPV9 10/08/2023 completed ANNETTA NICHOLE coughlin, [facility] 10/08/2023 12:03:01 Influenza, split virus, quadrivalent, PF 10/08/2023 completed ANNETTA NICHOLE coughlin, [facility] 10/08/2023 12:03:01 Past Encounters Encounter ID Performer Location Encounter Start Date Encounter Closed Date Diagnosis/Indication Diagnosis SNOMED-CT Code Diagnosis ICD10 Code [id number] ZORAIDA MASTERSON [facility] [address] [place] [address] 05/12/2024 10:57:02 05/12/2024 11:55:18 Active or passive immunization 322399492 Z23 Attention deficit hyperactivity disorder 028887116 F90.9 Pain of le ft shoulder region 2165326283 M25.512 Health Concerns Section Related Observation LastModified by Organization Detai ls LastModified Time None Recorded Concern Status LastModified by Organization Details LastModified Time None Recorded Payers Encounter Date Sequence Insurance Name Policy Number Policy [place] Covered Member ID [place] Member ID Guarantor Name 05/12/2024 1 [facility] [id number] David Bolden [id number] David Bolden Notes Date Note Type Note Provider Name and Address Organization Details Recorded Time 05/12/2024 text/html HPI Notes: Pt, 4 2- [...] employed for 4-years now. 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 Social: Pt. reports she lives with her mother. She has her 12-year-old child (they/them) 1/2 the time and the other 1/2 the time with their mother. ZORAIDA MASTERSON [address], [place], [address], [facility]. 05/12/2024 12:48:36
--- OUTSIDE RECORDS SUMMARY | 2024-08-04 17:53 | XMS_ITS | Encounter Summary ---
Author Organization [facility] Address [address] [place] [address] Care Team Providers Care Marine Scientist Name Role Phone Unavailable Primary Care Provider Unavailabl e Encounter Details Date Type Department Care Team (Latest Contact Info) Description 02/22/2003 8:11 EDT - 02/22/2003 11:59 EDT Hospital Encounter [facility] Emergency Department - [facility] [address] [place] [address] Emergency, Default, MD Discharge Disposition: Home or Self Care Social History Tobacco Use Types Packs/Day Years Used Date Smoking Tobacco: Never Assessed Sex and Gender Information Value Date Recorded Sex Assigned at Not on file Gender Identity Not on file Sexual Orientation Not on file documented as of this encounter Discharge Disposition Disposition Code Departure Means Destination Home or Self Care documented in this encounter Plan of Treatment Not on file documented as of this encounter Procedures Procedure Name Priority Date/Time Associated Diagnosis Comments GROUP A STREP CULTURE Routine 02/22/2003 9:00 EDT documented in this encounter Results * PHARYNGITIS CULTURE (02/22/2003 9:00 EDT) Specimen Description Throat [facility] Result NO GROUP A BETA STREPTOCOCCI ISOLATED [facility] Report Status Final [id number] [facility] 02/22/2003 9:00 EDT 02/22/2003 9:31 EDT Default Emergency MD MICROBIOLOGY - GENE [facility] ORDERABLES [facility] [address] [place] [address] documented in this encounter Visit Diagnoses Not on filedocumented in this encounter
--- OUTSIDE RECORDS SUMMARY | 2024-08-04 17:53 | XMS_ITS | Continuity of Care Document ---
Author Organization [facility] Address [address] [place] [address] Assessment No assessment recorded. Plan of Treatment Reminders Order Date Submit Date Provider Last Modified By Organization Details Last Modified Time Details Appointments Follow Up 30 2023 09:30A M Adal Franco Not available Not available Not available Annual Wellness Exam 40 2024 09:30A M Adal Franco Not available Not available Not available Lab BMP, serum or plasma 2023 [email or web address] [facility] (Registration ), [address] [place] [address] [place], [address], 08/04/2024 15:12:15 magnesium , serum or plasma 2023 [email or web address] [facility] (Registration ), [address] [place] [address] [place], [address], 08/04/2024 15:12:15 drug screen, urine 2023 [facility], [address], [place], [address], 08/04/2024 15:12:15 methylphe nidate, urine, confirmat ory method 2023 [facility] (Registration ), [address] [place] [address] [place], [address], 08/04/2024 15:12:15 Referral None recorded. Procedures None recorded. Surgeries None recorded. Imaging None recorded. Medication Orders methylphe nidate CD 30 mg biphasic 30-70 capsule,e xtended release 2023 [facility], [address] [place] [address], [id number], 08/04/2024 15:17:48 methylphe nidate CD 30 mg biphasic 30-70 capsule,e xtended release 2023 [facility], [address] [place] [address], [id number], 08/04/2024 15:17:45 methylphe nidate CD 30 mg biphasic 30-70 capsule,e xtended release 2023 [facility], [address] [place] [address], [id number], 08/04/2024 15:17:45 Patient TargetsNo targets recorded. Patient Instructions Encounter Date Encounter Id Patient Instructions Last Modified By Organization Details Last Modified Time 08/04/2024 [id number] Please give me a call 3-days before you need refill and I will send the next 3-scripts. - Be careful of weekends. [email or web address] Not available 08/04/2024 10:05:31 Reason for Referral None Reported. Results Created Date Observation Date Name Description Value Unit Range Abnormal Flag Note LastModifiedBy Organization Detail LastModifiedTime 08/04/2008/04/2024 drug scree n, urine Amphetamines : negati ve Not Available [facility] [address], [place], [address], 08/04/2024 07:13:27 08/04/20 24 08/04/2024 drug scree n, urine Barbiturates : negati ve Not Available [facility] [address], [place], [address], 08/04/2024 07:13:27 08/04/20 24 08/04/2024 drug scree n, urine BUP: negati ve Not Available [facility] [address], [place], [address], 08/04/2024 07:13:27 08/04/2008/04/2024 drug scree n, urine Benzodiazepi javier: negati ve Not Available [facility] [address], [place], [address], 08/04/2024 07:13:27 08/04/2008/04/2024 drug scree n, urine Cocaine: negati ve Not Available [facility] [address], [place], [address], 08/04/2024 07:13:27 08/04/2008/04/2024 drug scree n, urine EDDP (Methadone Metabolite) negati ve Not Available [facility] [address], [place], [address], 08/04/2024 07:13:27 08/04/2008/04/2024 drug scree n, urine (MET) Methamphetam ine: negati ve Not Available [facility] [address], [place], [address], 08/04/2024 07:13:27 08/04/2008/04/2024 drug scree n, urine MDMA: negati ve Not Available [facility] [address], [place], [address], 08/04/2024 07:13:27 08/04/2008/04/2024 drug scree n, urine MTD (Methadone): negati ve Not Available [facility] [address], [place], [address], 08/04/2024 07:13:27 08/04/20 24 08/04/2024 drug scree n, urine [id number] (Opiate): negati ve Not Available [facility] [address], [place], [address], 08/04/2024 07:13:27 08/04/20 24 08/04/2024 drug scree n, urine OXY (Oxycodone): negati ve Not Available [facility] [address], [place], [address], 08/04/2024 07:13:27 08/04/2008/04/2024 drug scree n, urine TCA: negati ve Not Available [facility] [address], [place], [address], 08/04/2024 07:13:27 08/04/20 24 08/04/2024 drug scree n, urine THC: negati ve Not Available [facility] [address], [place], [address], 08/04/2024 07:13:27 Result Notes None recorded. Problems Name Problem SNOMED Code Status Onset Date Resolution Date Notes Provider Name and Address Organization Details Recorded Time Herpesvi tamia infectio n 20169842 Active 2015 Problem Code: A60.00; Problem Code Type: ICD-10; Not Available [facility] 3 04:43:55 Adult health examinat ion Active [...] Z00.00; Problem Code Type: ICD-10; Not Available [facility] 3 04:43:55 Migraine without aura, not refracto ry 550272831 Active 2015 Problem Code: G43.009; Problem Code Type: ICD-10; Not Available [facility] 3 04:43:55 Attentio n deficit hyperact ivity disorder , predomin antly inattent steven type 19164495 Active 201606/11/20 23 - Comments only - Annetta Long MD - Stable on methylfe nidate, refill due at the end of the month, continue 3 mo f/u Problem Code: F90.0; Problem Code Type: ICD-10; Not Available [facility] 3 04:43:56 Tinea cruris 870366692 Active 201608/18/20 17 - Comments only - Annetta Long MD - Most c/w fungal infectio n tinea cruris. try antifung al cream. Discusse d moister, using cotton underwea r might help. Problem Code: B35.6; Problem Code Type: ICD-10; Not Available [facility] 3 04:43:56 Body mass index 25-29 - overweig ht 643530342 Active 2018 Problem Code: Z68.28; Problem Code Type: ICD-10; Not Available [facility] 3 04:43:56 Therapeu tic drug monitori ng assay 72692299 Active 2019 Problem Code: Z51.81; Problem Code Type: ICD-10; Not Available [facility] 3 04:43:56 Prediabe iveth 848758503 Active 201909/01/20 22 - Comments only - Annetta Long MD - Normaliz ed last year, repeat fasting glucose now as part of BMP Problem Code: R73.03; Problem Code Type: ICD-10; Not Available [facility] 3 04:43:56 Melanocy tic nevus 831267918 Active 2021 Problem Code: D22.9; Problem Code Type: ICD-10; Not Available [facility] 3 04:43:56 Condylom a acuminat um of the anogenit al region 957090875 Active 202212/03/19 23 - Comments only - Annetta Long MD - These are c/w genital warts, discusse d options try imiquomo d. Problem Code: A63.0; Problem Code Type: ICD-10; Not Available [facility] 3 04:43:56 Blood glucose outside referenc e range 456263837 Completed 201907/22/2023 Problem Code: R73.09; Problem Code Type: ICD-10; Not Available [facility] 3 04:43:57 History of vasectom y 162974863 Completed 201708/23/2018 Problem Code: Z98.52; Problem Code Type: ICD-10; Not Available [facility] 3 04:43:58 Contrace ption care manageme nt Completed 201705/17/2018 Problem Code: Z30.9; Problem Code Type: ICD-10; Not Available [facility] 3 04:43:58 Hypercal cemia 11387179 Completed 201802/14/2019 Problem Code: E83.52; Problem Code Type: ICD-10; Not Available [facility] 3 04:44:00 Attentio n deficit hyperact ivity disorder 576533219 Active [address], [place], [address] , [facility] 4 11:52:52 Pain of left shoulder region Active [address], [place], [address] , [facility] 4 11:14:28 Problem Notes None recorded. Medical Equipment None Reported. Allergies Allergen ID Allergen Name Allergen Category Reaction Reaction Severity Criticality Documentation Date Start Date Code Code System Note Provider Name and Address Organization Details Recorded Time 75555 house dust allergeni c extract environme nt,medica tion Not available Not available Not available 09/04/20232015 24112 9 RxNorm Not Available [facility] 3 16:22:05 Medications Name Sig Start [...] Updated DateTime 4 181.61 cm 34.1 kg/m2 102125. 91 g 98.1 [degF] 97 % 97 % 91 /min 18 /min 124 mm[Hg] 72 mm[Hg] Miryam Barroso [facility] 4 09:37:41 Social History Question Answer Notes LastModified by Organizat ion Details LastModified Time Tobacco Smoking Status Never Smoker TRACI VALDOVINOS MA null, [facility] 05/12/2024 11:10:44 1) Date Of Last VPMS [...] Time HPV9 05/12/[address], [place], [address], [facility] 05/12/2024 12:08:55 Hep A-Hep B 12/03/2022 completed Not Available [facility] 09/04/2023 04:09:58 Tdap 07/16/2016 completed Not Available [facility] 04:09:58 Influenza, split virus, quadrivalent, PF 08/01/2019 completed Not Available [facility] 09/04/2023 04:09:59 Influenza, split virus, quadrivalent, PF 09/01/2022 completed Not Available [facility] 09/04/2023 04:09:59 Influenza, split virus, quadrivalent, PF 10/02/2020 completed Not Available [facility] 09/04/2023 04:09:59 Influenza, split virus, quadrivalent, preservative 07/22/2017 completed Not Available [facility] 09/04/2023 04:09:59 HPV9 03/03/2023 completed Not Available [facility] 04:09:59 COVID-19, mRNA, LNP-S, PF, 100 mcg/0.5mL dose or 50 mcg/0.25mL dose 02/23/2021 completed Not Available [facility] 09/04/20 04:10:00 COVID-19, mRNA, LNP-S, PF, 100 mcg/0.5mL dose or 50 mcg/0.25mL dose 03/23/2021 completed Not Available [facility] 09/04/20 04:10:00 SARS-COV-2 (COVID-19) vaccine, UNSPECIFIED 04/10/2022 completed Not Available [facility] 09/04/2023 04:10:01 SARS-COV-2 (COVID-19) vaccine, UNSPECIFIED 09/30/2021 completed Not Available [facility] 09/04/2023 04:10:01 COVID-19, mRNA, LNP-S, bivalent, PF, 30 mcg/0.3 mL dose 01/27/2023 completed Not Available [facility] 09/04/2023 04:10:01 influenza, unspecified formulation 08/09/2018 completed Not Available [facility] 09/04/2023 04:10:02 Influenza, split virus, trivalent, PF 08/04/2024 completed ALVIN GONZALEZ RN null, [facility]. 08/04/2024 16:44:10 COVID-19, mRNA, LNP-S, PF, deborah-sucrose, 30 mcg/0.3 mL 08/04/[address], [place], [address], [facility]. 08/04/2024 10:23:33 COVID-19, mRNA, LNP-S, PF, deborah-sucrose, 30 mcg/0.3 mL 10/08/2023 completed ANNETTA coughlin, [facility] 10/08/2023 12:03:01 HPV9 10/08/2023 completed ANNETTA coughlin, [facility] 10/08/2023 12:03:01 Influenza, split virus, quadrivalent, PF 10/08/2023 completed ANNETTA coughlin, [facility] 10/08/2023 12:03:01 Past Encounters Encounter ID Performer Location Encounter Start Date Encounter Closed Date Diagnosis/Indication Diagnosis SNOMED-CT Code Diagnosis ICD10 Code [id number] ZORAIDA MASTERSON [facility] [address] [place] [address] 08/04/2024 09:26:56 08/04/2024 10:21:48 Attention deficit hyperactivity disorder 639382788 F90.9 Active or passive immunization 323533733 Z23 Therapeuti c drug monitoring assay 45718049 Z51.81 Health Concerns Section Related Observation LastModified by Organization Detai ls LastModified Time None Recorded Concern Status LastModified by Organization Details LastModified Time None Recorded Payers Encounter Date Sequence Insurance Name Policy Number Policy [place] Covered Member ID [place] Member ID Guarantor Name 08/04/[address] [facility] [id number] David Bolden [id number] David Bolden Notes Date Note Type Note Provider Name and Address Organization Details Recorded Time 08/04/2024 text/html HPI Notes: Pt 44-here for ADHD follow up. Reports meds working as long and as well as they should. No palpitations, diaphoresis, raynaud's, no new tics. Pt. w/out concerns. VPMS checked today. ZORAIDA MASTERSON [address], [place], [address], [facility] 08/04/2024 15:18:46
--- OUTSIDE RECORDS SUMMARY | 2024-08-04 17:53 | XMS_ITS | Referral Summary ---
Author Organization [facility] Address [address] [place] [address] Care Team Providers Care Discharge Door Operator Name Role Phone Bam Long MD Primary Care Provider [phone] Allergies No known active allergies Medications Medication Sig Dispensed Refills Start Date End Date Status methylphenidate HCl (METADATE CD) 30 mg ER capsule Take 30 mg by mouth daily. 0 07/21/2019 Active Multivitamins with Minerals tablet tablet Take 1 Tab by mouth daily. Active spironolactone (ALDACTONE) 50 mg tablet Take 50 mg by mouth 2 times daily. Active Social History Tobacco Use Types Packs/Day Years Used Date Smoking Tobacco: Never Smokeless Tobacco: Never Interpersonal Safety Answer Date Record ed Physically Hurt Never 05/27/2020 Verbally Threaten Not on file 05/27/2020 Sex and Gender Information Value Date Recorded Sex Assigned at Not on file Gender Identity Not on file Sexual Orientation Not on file Last Filed Vital Signs Vital Sign Reading Time Taken Comments Blood Pressure 117/75 08/15/2019 0909 EDT Pulse 98 08/15/2019 09 EDT Temperature - - Respiratory Rate - - Oxygen Saturation - - Inhaled Oxygen Concentration - - Weight 96.6 kg (213 lb) 08/15/2019 09 EDT Height 182.9 cm (6') 08/15/2019 09 EDT Body Mass Index 28.89 08/15/2019 09 EDT Functional Status Functional Status Response Date of [...] concentrating, remembering, or making decisions? No 08/15/2019 Plan of Treatment Not on file Care Teams Discharge Door Operator Relationship Specialty Start Date End Date Bam Long MD [address] [place] [address] PCP - General 08/05/19
--- OUTSIDE RECORDS SUMMARY | 2024-08-04 17:53 | XMS_ITS | Clinical Summary ---
Author Organization [facility] Address [address] [place] [address] Care Team Providers Care Bullard Machine Operator Name Role Phone Bam Long MD Primary Care Provider [phone] Allergies No known active allergies Medications Medication Sig Dispensed Refills Start Date End Date Status methylphenidate HCl (METADATE CD) 30 mg ER capsule Take 30 mg by mouth daily. 0 07/21/2019 Active Multivitamins with Minerals tablet tablet Take 1 Tab by mouth daily. Active spironolactone (ALDACTONE) 50 mg tablet Take 50 mg by mouth 2 times daily. Active Surgical History Surgery Date Site/Laterality Comments VASECTOMY 10/26/2017 - 10/25/2018 Medical History Medical History Date Comments Adhd Asthma Social History Tobacco Use Types Packs/Day Years Used Date Smoking Tobacco: Never Smokeless Tobacco: Never Interpersonal Safety Answer Date Record ed Physically Hurt Never 05/27/2020 Verbally Threaten Not on file 05/27/2020 Sex and Gender Information Value Date Recorded Sex Assigned at Not on file Gender Identity Not on file Sexual Orientation Not on file Obstetrics History Last Filed Vital Signs Vital Sign Reading Time Taken Comments Blood Pressure 117/75 08/15/2019 0909 EDT Pulse 98 08/15/2019 0909 EDT Temperature - - Respiratory Rate - - Oxygen Saturation - - Inhaled Oxygen Concentration - - Weight 96.6 kg (213 lb) 08/15/2019 0909 EDT Height 182.9 cm (6') 08/15/2019 0909 EDT Body Mass Index 28.89 08/15/2019 0909 EDT Plan of Treatment Health Maintenance Due Date Last Done Comments Hepatitis C Screen 1982 Hepatitis B Vaccine (1 of 3 - 19+ 3-dose series) 01/13 COVID-19 Vaccine (2022-24 season) 2023 Care Teams Bullard Machine Operator Relationship Specialty Start Date End Date Bam Long MD [address] [place] [address] PCP - General 08/05/19
--- OUTSIDE RECORDS SUMMARY | 2024-08-04 17:53 | XMS_ITS | Encounter Summary ---
Author Organization [facility] Address [address] [place] [address] Care Team Providers Care Command And Control Name Role Phone Bam Long MD Primary Care Provider [phone] Encounter Details Date Type Department Care Team (Late st Contact Info) Description 12/03/2022 Lab Requisition [facility] Pathology & Laboratory Medicine - [address] [address] Outr Resulting Lab, Provider Social History Tobacco [...] Procedure Name Priority Date/Time Associated Diagnosis Comments HIV 1/2 ANTIGEN AND ANTIBODY, 4TH GENERATION Routine 12/03/2022 9:50 EST documented in this encounter Results * HIV 1/2 ANTIGEN AND ANTIBODY, 4TH GENERATION (12/03/2022 9:50 EST) HIV 1 and 2 Antibody/p24 Antigen, 4th Generation Negative Negative 12/04/2022 10:19 EST [facility] Comment:If acute HIV-1 infec tion is suspected in a high risk patient, submit plasma specimen for HIV-1 RNA quantitation test. Blood VENOUS BLOOD / Unknown 12/03/2022 9:50 EST 12/03/2022 21:46 EST Narrative [facility] - 12/04/2022 10:19 EST Fourth Generation assay performed on the Siem[employer] XPT. Provider Outr Resulting Lab IMMUNOLOGY A ND SEROLOGY ORDERABLES [facility] [address] [place] [address] documented in this encounter Visit Diagnoses Not on filedocumented in this encounter Care Teams Command And Control Relationship Specialty Start Date End Date Bam Long MD [facility] [place] [address] [place] [address] PCP - General 08/05/19 documented as of this encounter
--- OUTSIDE RECORDS SUMMARY | 2024-08-04 17:53 | XMS_ITS | Encounter Summary ---
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 Ivett Aj 08/15/2019 10:03 documented in this encounter Plan of Treatment Not on file documented as of this encounter Procedures Procedure Name Priority Date/Time Associated Diagnosis Comments ESTRADIOL, ADULTS Routine 08/15/2019 10: 03 EDT Hormone disorder TESTOSTERONE Routine 08/15/2019 10:03 EDT Hormone disorder documented in this encounter Results * TESTOSTERONE (08/15/2019 10:03 EDT) Testosterone 356 229 - 902 ng/dl 08/16/2019 11:54 EDT [facility] Comment: The results of this assay can be falsely elevated due to the consumption of Biotin. Blood specimen (specimen) BLOOD SPECIMEN / Unknown 08/15/2019 10:03 EDT 08/15/2019 16:19 EDT Rohini Nieto MD PhD CHEMISTRY & BLOOD GAS ORDERABLES Performing Organization Address [facility] Co de Phone Number [facility] [address] [place] [address] * ESTRADIOL, ADULTS (08/15/2019 10:03 EDT) Estradiol 23 0 - 40 pg/ml 08/15/2019 17:20 EDT [facility] Blood specimen (specimen) BLOOD SPECIMEN / Unknown 08/15/2019 10:03 EDT 08/15/2019 16:19 EDT Rohini Nieto MD PhD CHEMISTRY & BLOOD GAS ORDERABLES Performing Organization Address [facility] Co de Phone Number [facility] [address] [place] [address] documented in this encounter Visit Diagnoses Diagnosis Hormone disorder- Primary Unspecified endocrine disorder documented in this encounter Care Teams Appraiser Land Relationship Specialty Start Date End Date Bam Long MD [address] [place] [address] PCP - General 08/05/19 documented as of this encounter
== END 2024-08-04 17:34 | disposition home or self-care (01) ==
LOC: NCHCN 17:33
PROVIDERS: PCP Family Medicine; Visit Provider Student in an Organized Health Care Education/Training Program
DX: Z51.81 Encounter for therapeutic drug level monitoring (principal)
CPT/HCPCS: 80048; 83735

== ENCOUNTER 2024-11-04 19:22 | Outpatient (REF) | payer OTHER, SELFPAY ==
[2024-11-04 16:09] LABS: TSH (W/Ref FT4) 0.97 uIU/mL (0.36-3.74)
[2024-11-08 05:04] LABS: Methylphenidate 83 ng/mL (Cutoff: 10); Ritalinic Acid 6707 ng/mL (Cutoff: 50)
== END 2024-11-04 19:23 | disposition home or self-care (01) ==
LOC: NCHCN 19:22
PROVIDERS: PCP Student in an Organized Health Care Education/Training Program; Visit Provider Student in an Organized Health Care Education/Training Program
DX: F90.9 Attention-deficit hyperactivity disorder, unspecified type (principal); Z79.899 Other long term (current) drug therapy; R00.0 Tachycardia, unspecified
CPT/HCPCS: 80360; 84443

== ENCOUNTER 2025-05-17 15:31 | Outpatient (REF) | payer OTHER, SELFPAY | END 2025-05-17 15:32 | disposition home or self-care (01) | LOC: NCHCN 15:31 | PROVIDERS: PCP Student in an Organized Health Care Education/Training Program; Visit Provider Student in an Organized Health Care Education/Training Program | DX: F64.9 Gender identity disorder, unspecified (principal) | CPT/HCPCS: 82670 ==